=== PATIENT | male | born 1960 | race Caucasian/White ===

== ENCOUNTER 2019-03-10 15:52 | Emergency (ER) | payer SELFPAY ==
[~2019-03-10] VITALS: Ht 175.3 cm; Wt 83.9 kg
== END 2019-03-10 19:30 | disposition home or self-care (01) ==
LOC: ED 15:52
DX: S01.81XA Laceration without foreign body of other part of head, initial encounter (principal); W06.XXXA Fall from bed, initial encounter; Y92.143 Cell of prison as the place of occurrence of the external cause
CPT/HCPCS: 99283